=== PATIENT | male | born 1985 | race African-American/Black ===

== ENCOUNTER 2017-07-04 01:15 | Emergency (ER) | payer MEDICAID, OTHER ==
[~2017-07-04] VITALS: Ht 162.6 cm; Wt 52.0 kg
[2017-07-04 01:59] VITALS: BP 141/97
== END 2017-07-04 08:39 | disposition home or self-care (01) ==
LOC: ER 06:53
DX: M25.562 Pain in left knee (principal); G80.9 Cerebral palsy, unspecified; F17.210 Nicotine dependence, cigarettes, uncomplicated; Z76.5 Malingerer [conscious simulation]; Z88.8 Allergy status to other drugs, medicaments and biological substances
CPT/HCPCS: 99283